=== PATIENT | female | born 2000 | race Asian ===

== ENCOUNTER → 2018-09-12 | Outpatient (CLI) | payer OTHER | LOC: M LRY 13:42 | DX: R10.9 Unspecified abdominal pain (principal) | CPT/HCPCS: 74021; 81002 ==

== ENCOUNTER → 2018-09-12 | Outpatient (CLI) | payer OTHER | LOC: M LRY 13:32 | DX: R10.9 Unspecified abdominal pain (principal); Z53.9 Procedure and treatment not carried out, unspecified reason ==